=== PATIENT | female | born 1970 | race Asian ===

== ENCOUNTER → 2023-07-30 18:35 | Outpatient (REF) | payer OTHER, SELFPAY | LOC: MRI 18:35 | PROVIDERS: ATTENDING PHYSICIAN Physician Assistant Medical | DX: K76.9 Liver disease, unspecified (principal) | CPT/HCPCS: 74183; A9575 ==

== ENCOUNTER → 2024-01-03 06:25 | Day surgery (SDC) | payer OTHER, SELFPAY | LOC: GI 06:25 | PROVIDERS: ATTENDING PHYSICIAN Internal Medicine Gastroenterology | DX: Z12.11 Encounter for screening for malignant neoplasm of colon (principal); D12.5 Benign neoplasm of sigmoid colon | CPT/HCPCS: 45385; 88305 ==

== ENCOUNTER → 2025-03-16 08:28 | Outpatient (REF) | payer OTHER, SELFPAY | LOC: WDC 08:28 | PROVIDERS: ATTENDING PHYSICIAN Physician Assistant Medical | DX: Z12.31 Encounter for screening mammogram for malignant neoplasm of breast (principal) | CPT/HCPCS: 77063; 77067 ==